=== PATIENT | male | born 1945 | race Caucasian/White ===

== ENCOUNTER → 2019-10-12 | Outpatient (CLI) | payer MEDICARE | END | disposition home or self-care (01) | LOC: CVU 12:35 | PROVIDERS: ATTEND Internal Medicine Cardiovascular Disease | DX: I05.8 Other rheumatic mitral valve diseases (principal); I73.9 Peripheral vascular disease, unspecified; I10 Essential (primary) hypertension; R06.02 Shortness of breath | CPT/HCPCS: 93306; 93922 ==